=== PATIENT | male | born 1965 ===

== ENCOUNTER 2016-07-14 17:24 | Observation (INO) | payer OTHER ==
--- NOTE | 2016-07-14 18:00 | ED PDOC ---
HPI: Chest Pain Time Seen by Provider: 07/14/16 17:39 Chief Complaint (Nursing): Chest Pain Chief Complaint (Provider): Chest Pain History Per: Patient History/Exam Limitations: no limitations Onset/Duration Of Symptoms: Days (3 days), Intermittent Episodes Current Symptoms Are (Timing): Intermittent Episodes Severity: Moderate Quality: Sharp Associated Symptoms: Dyspnea, Other (chronic headache, difficulty sleeping). denies: Nausea Additional Complaint(s): Rolf Altamirano is a 51 year old male, with a past medical history of previously known migraines and hypercholesterolemia, who presents to the emergency department for the evaluation of intermittent episodes of sharp, left- sided chest pain, that the patient has been experiencing over the last 2 days, associated with SOB. Associated chronic headache and difficulty sleeping are currently present. Denies nausea or vomiting. PMD: Lee Sykes MD Past Medical History Reviewed: Historical Data, Nursing Documentation, Vital Signs Vital Signs: Last Vital Signs Temp 97.7 F 07/14/16 17:31 Pulse 85 07/14/16 19:01 Resp 16 07/14/16 18:03 BP 126/78 07/14/16 18:03 Pulse Ox 99 07/14/16 19:01 - Medical History PMH: Hypercholesterolemia, Migraine Denies: Chronic Kidney Disease - Surgical History Surgical History: No Surg Hx - Family History Family History: States: No Known Family Hx - Social History Current smoker - smoking cessation education provided: No Ex-Smoker (has not smoked in the last 12 months): No Alcohol: None Drugs: Denies - Immunization History Hx Influenza Vaccination: No Hx Pneumococcal Vaccination: No - Home Medications Home Medications: Ambulatory Orders Medication Instructions Recorded Promethazine/Codeine 5 ml PO Q8 #75 ml 01/19/16 [Codeine/Promethazine 10 MG/5 Ml-6.25 MG/5 Ml] predniSONE [Prednisone] 20 mg PO BID #10 tab 01/19/16 - Allergies Allergies/Adverse Reactions: Allergies Allergy/AdvReac Type Severity Reaction Status Date / Time No Known Allergies Allergy Verified 01/19/16 20:55 DALJIT Risk Score for UA/NSTEMI - DALJIT Risk Score Age > 64: NO 3 or more CAD Risk Factors: NO Known CAD (Stenosis greater than 50%): NO Aspirin use in past 7 days: NO Severe Angina: NO EKG ST changes greater than 0.5mm: NO Positive Cardiac Marker: NO DALJIT Score: 0 Risk %: 5% Review of Systems ROS Statement: Except As Marked, All Systems Reviewed And Found Negative Cardiovascular: Positive for: Chest Pain ("sharp", left-sided) Respiratory: Negative for: Shortness of Breath Gastrointestinal: Negative for: Nausea Neurological: Positive for: Headache (chronic, evaluated by Neurologist for same , MRI performed, no change in pain) Physical Exam - Reviewed Nursing Documentation Reviewed: Yes Vital Signs Reviewed: Yes - Physical Exam Appears: Positive for: Well, Non-toxic, No Acute Distress Head Exam: Positive for: ATRAUMATIC, NORMOCEPHALIC Skin: Positive for: Normal Color, Warm, Dry Cardiovascular/Chest: Positive for: Regular Rate, Rhythm, Chest Non Tender. Negative for: Murmur Respiratory: Positive for: Normal Breath Sounds. Negative for: Respiratory Distress Gastrointestinal/Abdominal: Positive for: Normal Exam, Soft. Negative for: Tenderness Back: Positive for: Normal Inspection. Negative for: L CVA Tenderness, R CVA Tenderness Neurologic/Psych: Positive for: Alert, Oriented - Laboratory Results Result Diagrams: 07/14/16 18:00 07/14/16 18:00 - ECG ECG Rhythm: Positive for: Sinus Rhythm, Right Bundle Branch Block (incomplete). Negative for: ST/T Changes Rate: 85 O2 Sat by Pulse Oximetry: 99 (RA) Pulse Ox Interpretation: Normal - Radiology X-Ray: Interpreted by In X-Ray Interpretation: No Acute Disease Medical Decision Making Medical Decision Makin:39 Initial Impression: Chest pain Initial Plan: * Chest X-Ray * Electrocardiogram * Complete Blood Count * Comprehensive Metabolic Panel * Prothrombin Time * Partial Thromboplastin Time * Troponin I * Reevaluation 17:55 EKG reviewed with no ST/T changes, incomplete Right Bundle Branch Block, and a Normal Sinus Rhythm at a rate of 85. Scribe Attestation: Documented by Owen Oakley, acting as a scribe for Amalia Rodriguez MD. Provider Scribe Attestation: All medical record entries made by the Scribe were at my direction and personally dictated by me. I have reviewed the chart and agree that the record accurately reflects my personal performance of the history, physical exam, medical decision making, and the department course for this patient. I have also personally directed, reviewed, and agree with the discharge instructions and disposition. Disposition - Clinical Impression Clinical Impression: Chest pain - Patient ED Disposition Is Patient to be Admitted: Yes - Disposition Disposition Time: 19:10 Condition: STABLE - Pt Status Changed To: Hospital Disposition Of: Observation - POA Present On Arrival: None
[2016-07-14 18:20] LABS: BASO # 0.1 K/uL (0.0-0.2); EOS # 0.9 K/uL (0.0-0.7); EOS % 9.8 % (0.0-4.0); HEMATOCRIT 41.9 % (35.0-51.0); LYMPH # 2.6 K/uL (1.0-4.3); LYMPH % 27.4 % (20.0-40.0); MEAN CELL VOLUME 83.4 fl (80.0-94.0); MEAN CORPUSCULAR HEMOGLOBIN 28.8 pg (27.0-31.0); MEAN CORPUSCULAR HGB CONC 34.6 g/dL (33.0-37.0); MEAN PLATELET VOLUME 10.1 fl (7.2-11.7); MONO % 11.1 % (0.0-10.0); NEUT # 4.8 K/uL (1.8-7.0); NEUT % 50.7 % (50.0-75.0); NRBC % 0.1 % (0.0-0.0); RED CELL DISTRIBUTION WIDTH 13.5 % (11.5-14.5); WHITE BLOOD COUNT 9.5 K/uL (4.8-10.8)
[2016-07-14 18:34] LABS: ALB/GLOB RATIO 1.6 (1.0-2.1); ALKALINE PHOSPHATASE 71 U/L (38-126); ALT/SGPT 58 U/L (21-72); AST/SGOT 31 U/L (17-59); BILIRUBIN,TOTAL 0.7 mg/dl (0.2-1.3); BLOOD UREA NITROGEN 23 mg/dl (9-20); CALCIUM 9.1 mg/dL (8.4-10.2); CARBON DIOXIDE 25 mmol/L (22-30); CHLORIDE 103 mmol/L (98-107); GFR AFRICAN-AMERICAN > 60; GLUCOSE,RANDOM 99 mg/dL (75-110); POTASSIUM 3.7 MMOL/L (3.6-5.0); SODIUM 138 mmol/l (132-148); TOTAL PROTEIN 7.6 G/DL (6.3-8.2)
[2016-07-14 18:40] LABS: PARTIAL THROMBOPLASTIN TIME 32.3 Seconds (25.6-37.1)
[2016-07-15 06:47] LABS: HEMATOCRIT 42.9 % (35.0-51.0); MEAN CELL VOLUME 83.4 fl (80.0-94.0); MEAN CORPUSCULAR HEMOGLOBIN 28.6 pg (27.0-31.0); MEAN CORPUSCULAR HGB CONC 34.3 g/dL (33.0-37.0); RED CELL DISTRIBUTION WIDTH 13.7 % (11.5-14.5); WHITE BLOOD COUNT 7.6 K/uL (4.8-10.8)
[2016-07-15 07:01] LABS: ALB/GLOB RATIO 1.6 (1.0-2.1); ALKALINE PHOSPHATASE 67 U/L (38-126); ALT/SGPT 58 U/L (21-72); AST/SGOT 28 U/L (17-59); BILIRUBIN,TOTAL 1.2 mg/dl (0.2-1.3); BLOOD UREA NITROGEN 18 mg/dl (9-20); CALCIUM 9.3 mg/dL (8.4-10.2); CARBON DIOXIDE 26 mmol/L (22-30); CHLORIDE 104 mmol/L (98-107); GFR AFRICAN-AMERICAN > 60; GLUCOSE,RANDOM 86 mg/dL (75-110); POTASSIUM 4.3 MMOL/L (3.6-5.0); SODIUM 141 mmol/l (132-148); TOTAL PROTEIN 7.4 G/DL (6.3-8.2)
[2016-07-15 07:08] LABS: T4 6.45 ug/dl (5.5-11.0)
[2016-07-15 07:22] LABS: THYROID STIMULATING HORMONE 3.88 mIU/ML (0.46-4.68)
[2016-07-15 07:54] VITALS: RESP 18
[2016-07-15] MEDS ORDERED: Gadodiamide 287 MG/ML VIAL (15ML) IV ONE (07:59)
[2016-07-15] MEDS ORDERED: Omega-3-Acid Ethyl Esters 1 GM Cap PO SCH (09:00)
[2016-07-15 09:03] LABS: CHOLESTEROL 183 mg/dL (0-199)
--- NOTE | 2016-07-15 09:24 | CP.PCM.CON ---
History of Present Illness - History of Present Illness History of Present Illness: Full Note Dictated Atypical chest pain H/O Lipid abnormality No evidence of ACS seen Pt may go home and be treated as out pt. Past Patient History - Infectious Disease Hx of Infectious Diseases: None - Past Medical History & Family History Past Medical History?: No - Past Social History Smoking Status: Never Smoked - CARDIAC Hx Cardiac Disorders: Yes Hx Hypercholesterolemia: Yes - PULMONARY Hx Respiratory Disorders: No - NEUROLOGICAL Hx Neurological Disorder: Yes Hx Migraine: Yes (on and off headache) - HEENT Hx HEENT Problems: No - RENAL Hx Chronic Kidney Disease: No - ENDOCRINE/METABOLIC Hx Endocrine Disorders: No - HEMATOLOGICAL/ONCOLOGICAL Hx Blood Disorders: No - INTEGUMENTARY Hx Dermatological Problems: No - MUSCULOSKELETAL/RHEUMATOLOGICAL Hx Musculoskeletal Disorders: No Hx Falls: No - GASTROINTESTINAL Hx Gastrointestinal Disorders: No - GENITOURINARY/GYNECOLOGICAL Hx Genitourinary Disorders: No - PSYCHIATRIC Hx Psychophysiologic Disorder: No Hx Substance Use: No - SURGICAL HISTORY Hx Surgeries: No - ANESTHESIA Hx Anesthesia: No Hx Anesthesia Reactions: No Hx Malignant Hyperthermia: No Has any member of the family had a problem w/ anesthesia?: No Meds Allergies/Adverse Reactions: Allergies Allergy/AdvReac Type Severity Reaction Status Date / Time No Known Allergies Allergy Verified 01/19/16 20:55 - Medications Medications: Current Medications Acetaminophen (Tylenol 325mg Tab) 650 mg PO Q4 PRN PRN Reason: Headache Aspirin (Aspirin Chewable) 81 mg PO DAILY [facility] Last Admin: 07/15/16 09:05 Dose: 81 mg Folic Acid (Folic Acid) 1 mg PO DAILY [facility] Last Admin: 07/15/16 09:05 Dose: 1 mg Home Med (Icosapent Ethyl [Vascepa]) 1 tab PO DAILY [facility] Results - Vital Signs Recent Vital Signs: Last Vital Signs Temp 97.7 F 07/15/16 07:54 Pulse 69 07/15/16 07:54 Resp 18 07/15/16 07:54 BP 116/68 07/15/16 07:54 Pulse Ox 98 07/15/16 07:54 - Labs Result Diagrams: 07/15/16 05:20 07/15/16 05:20 Labs: Laboratory Results - last 24 hr 07/15/16 07/15/16 05:20 05:20 WBC 7.6 RBC 5.15 Hgb 14.7 Hct 42.9 MCV 83.4 MCH 28.6 MCHC 34.3 RDW 13.7 Plt Count 161 Sodium 141 Potassium 4.3 Chloride 104 Carbon Dioxide 26 Anion Gap 15 BUN 18 Creatinine 0.8 Est GFR ( Amer) > 60 Est GFR (Non-Af Amer) > 60 Random Glucose 86 Calcium 9.3 Total Bilirubin 1.2 AST 28 ALT 58 Alkaline Phosphatase 67 Troponin I < 0.0120 Total Protein 7.4 Albumin 4.5 Globulin 2.9 Albumin/Globulin Ratio 1.6 Triglycerides 130 Cholesterol 183 LDL Cholesterol Direct 116 HDL Cholesterol 42 Thyroxine (T4) 6.45 Total T3 1.18 L TSH 3rd Generation 3.88
--- NOTE | 2016-07-15 09:52 | CON ---
DATE: 07/15/2016 He is hospitalized in room 417, bed [address] Geller's care. HISTORY OF PRESENT ILLNESS: This 51-year-old man who has been taking a medication for abnormal lissett sterol profile came into the hospital complaining of left pectoral discomfort, quite unconnected to a ny physical activity. The patient indicates that he is able to walk a couple of miles without any di fficulty and climb a couple of flights of stairs without any difficulty. He has never been a smoker, not a hypertensive or a diabetic, has no family history of vascular disease, has never been hospital ized and does not give any history of prior surgery. PHYSICAL EXAMINATION: GENERAL: Shows a young man, quite alert, awake, coherent, afebrile, comfortably sitting at the edge of his bed, eating his breakfast. VITAL SIGNS: Afebrile with a pulse rate of 68 beats per minute, regular and a blood pressure of 124/ 74 mmHg. His respiratory rate was 14 breaths per minute. EXTREMITIES: Warm. Nailbeds were pink. There was no central or peripheral cyanosis. There was no clubbing. HEART: The apex was not palpable. The first and second heart sounds were normal. There was no murm ur, no gallop. LUNGS: No rales. ABDOMEN: Soft. Liver and spleen were not palpable. There was no tenderness in the precordial area. LUNGS: Clear. No carotid bruits were audible. LABORATORY DATA: His electrocardiogram showed sinus rhythm with a normal EKG pattern. His troponin x 2 was negative for any evidence of myocyte injury. His hemoglobin and hematocrit were 14.7 g and 4 2.9%, respectively. His WBC count and platelet counts were within normal limits. His BUN and creati nine were 18 and 0.8 mg%. His electrolytes were normal. His LDL cholesterol was 116 and his HDL cho lesterol was 42. TSH level was normal. IMPRESSION: At this time is atypical chest pain with no evidence of acute coronary syndrome in a pat ient with a history of lipid abnormality, the precise nature of which is unknown. The patient may re turn home and be managed as an outpatient. At this juncture, there is no evidence of any myocardial ischemia or acute coronary syndrome. Curtis Lord MD cc: 23 TT: 07/15/2016 09:52:06 Confirmation # [id number] Dictation # [id number] tn
--- NOTE | 2016-07-15 11:07 | RAD ---
HISTORY: Chest pain. COMPARISON: No prior. TECHNIQUE: Chest PA and lateral FINDINGS: LUNGS: No active pulmonary disease. PLEURA: No significant pleural effusion identified. No pneumothorax apparent. CARDIOVASCULAR: Normal. OSSEOUS STRUCTURES: No significant abnormalities. VISUALIZED UPPER ABDOMEN: Normal. OTHER FINDINGS: None. IMPRESSION: No active disease.
[2016-07-15] MEDS ORDERED: Valproate 500 MG in Sodium Chloride 0.9% 100 ML IVPB ONE ×2 (12:41→14:00)
[2016-07-15] MEDS ORDERED: Dexamethasone 10 MG in Sodium Chloride 0.9% 50 ML IV ONE ×2 (12:41→14:00)
[2016-07-15] MEDS ORDERED: Magnesium Sulfate 2 gm/50 ml 2 GM/50 ML BAG IVPB ONE ×2 (12:41→14:00)
--- NOTE | 2016-07-15 12:41 | CP.PCM.CON ---
History of Present Illness - History of Present Illness History of Present Illness: Mr. Altamirano is a 51-year-old man with a past medical history of chronic headaches that have been ongoing for the last two years and are treated with indomethacin with partial relief. He describes the headache as bifrontal, radiating to the back of the head with a throbbing quality and it is severe enough (8/10) to prevent him from sleeping. He says that it is not alleviated or worsened by any particular activity or medication. He also complains of bilateral upper extremity jerking movements during sleep. He complained of left -sided chest pain for which he is being worked up. The headache has gotten worse since last Thursday and is ongoing daily at the same level. Review of Systems - Review of Systems All systems: reviewed and no additional remarkable complaints except Past Patient History - Infectious Disease Hx of Infectious Diseases: None - Past Medical History & Family History Past Medical History?: No - Past Social History Smoking Status: Never Smoked - CARDIAC Hx Cardiac Disorders: Yes Hx Hypercholesterolemia: Yes - PULMONARY Hx Respiratory Disorders: No - NEUROLOGICAL Hx Neurological Disorder: Yes Hx Migraine: Yes (on and off headache) - HEENT Hx HEENT Problems: No - RENAL Hx Chronic Kidney Disease: No - ENDOCRINE/METABOLIC Hx Endocrine Disorders: No - HEMATOLOGICAL/ONCOLOGICAL Hx Blood Disorders: No - INTEGUMENTARY Hx Dermatological Problems: No - MUSCULOSKELETAL/RHEUMATOLOGICAL Hx Musculoskeletal Disorders: No Hx Falls: No - GASTROINTESTINAL Hx Gastrointestinal Disorders: No - GENITOURINARY/GYNECOLOGICAL Hx Genitourinary Disorders: No - PSYCHIATRIC Hx Psychophysiologic Disorder: No Hx Substance Use: No - SURGICAL HISTORY Hx Surgeries: No - ANESTHESIA Hx Anesthesia: No Hx Anesthesia Reactions: No Hx Malignant Hyperthermia: No Has any member of the family had a problem w/ anesthesia?: No Meds Allergies/Adverse Reactions: Allergies Allergy/AdvReac Type Severity Reaction Status Date / Time No Known Allergies Allergy Verified 01/19/16 20:55 - Medications Medications: Current Medications Acetaminophen (Tylenol 325mg Tab) 650 mg PO Q4 PRN PRN Reason: Headache Aspirin (Aspirin Chewable) 81 mg PO DAILY [facility] Last Admin: 07/15/16 09:05 Dose: 81 mg Folic Acid (Folic Acid) 1 mg PO DAILY [facility] Last Admin: 07/15/16 09:05 Dose: 1 mg [id number] Ethyl Esters (Lovaza) 1 gm PO DAILY [facility] Last Admin: 07/15/16 09:48 Dose: 1 gm Physical Exam - Constitutional Appears: Well - Head Exam Head Exam: ATRAUMATIC, NORMAL INSPECTION, NORMOCEPHALIC - Eye Exam Eye Exam: EOMI, Normal appearance, PERRL - ENT Exam ENT Exam: Mucous Membranes Moist, Normal Exam - Neck Exam Neck exam: Positive for: Normal Inspection - Respiratory Exam Respiratory Exam: Clear to Auscultation Bilateral, NORMAL BREATHING PATTERN - Cardiovascular Exam Cardiovascular Exam: Bradycardia, +S1, +S2 - GI/Abdominal Exam GI & Abdominal Exam: Normal Bowel Sounds, Soft. absent: Tenderness - Rectal Exam Rectal Exam: Deferred - Extremities Exam Extremities exam: Positive for: normal inspection - Back Exam Back exam: NORMAL INSPECTION - Neurological Exam Neurological exam: Alert, CN II-XII Intact, Normal Gait, Oriented x3, Reflexes Normal - Expanded Neurological Exam Expanded Patient oriented to: person, place, time Cranial nerves: EOM's Intact: Normal, Facial Palsey w/Forehead Movement: Normal , Gag Reflex: Normal Cerebellar Function: Finger to Nose: Normal, Heel to Mgiuel: Normal, Romberg: Normal Upper motor neuron: Babinski Sign: Normal Sensory exam: Lower Extremity 2 Point Discrimination: Normal, Lower Extremity Light Touch: Normal, Lower Extremity Pin Prick: Normal, Lower Extremity Temperature: Normal, Upper Extremity 2 Point Discrimination: Normal, Upper Extremity Light Touch: Normal, Upper Extremity Pin Prick: Normal, Upper Extremity Temperature: Normal Neuro motor strength exam: Left Upper Extremity: 5, Right Upper Extremity: 5, Left Lower Extremity: 5, Right Lower Extremity: 5 DTR: Achilles Tendon Left: 2+, Achilles Tendon Right: 2+, Bicep Left: 2+, Bicep Right: 2+, Brachioradialis Left: 2+, Brachioradialis Right: 2+, Patellar Left: 2 +, Patellar Right: 2+, Tricep Left: 2+, Tricep Right: 2+ - Psychiatric Exam Psychiatric exam: Normal Affect, Normal Mood - Skin Skin Exam: Dry, Intact, Normal Color, Warm Results - Vital Signs Recent Vital Signs: Last Vital Signs Temp 98.1 F 07/15/16 12:05 Pulse 68 07/15/16 12:05 Resp 18 07/15/16 12:05 BP 116/65 07/15/16 12:05 Pulse Ox 98 07/15/16 12:05 - Labs Result Diagrams: 07/15/16 05:20 07/15/16 05:20 Labs: Laboratory Results - last 24 hr 07/15/16 07/15/16 07/15/16 05:20 05:20 11:23 WBC 7.6 RBC 5.15 Hgb 14.7 Hct 42.9 MCV 83.4 MCH 28.6 MCHC 34.3 RDW 13.7 Plt Count 161 Sodium 141 Potassium 4.3 Chloride 104 Carbon Dioxide 26 Anion Gap 15 BUN 18 Creatinine 0.8 Est GFR ( Amer) > 60 Est GFR (Non-Af Amer) > 60 Random Glucose 86 Calcium 9.3 Total Bilirubin 1.2 AST 28 ALT 58 Alkaline Phosphatase 67 Troponin I < 0.0120 < 0.0120 Total Protein 7.4 Albumin 4.5 Globulin 2.9 Albumin/Globulin Ratio 1.6 Triglycerides 130 Cholesterol 183 LDL Cholesterol Direct 116 HDL Cholesterol 42 Thyroxine (T4) 6.45 Total T3 1.18 L TSH 3rd Generation 3.88 - Imaging and Cardiology MRI - head Status: Image reviewed by me, Report reviewed by me (No infarcts or signicant findings on MRI brain.) Assessment & Plan (1) Headache, new daily persistent (NDPH) Assessment and Plan: There is a migraine and tension-type quality to the headache. The MRI of the brain is essentially normal despite motion artifact. Will treat the headache with Magnesium Sulfate 2 grams IV, Decadron 10 mg IV and Depakote 500 mg IV. Will increase indomethacin to 50 mg BID and recommend follow-up with outpatient neurology. Status: Acute Priority: High
--- NOTE | 2016-07-15 13:44 | MRI ---
PROCEDURE: MRI BRAIN WITH AND WITHOUT CONTRAST HISTORY: on and off headache,involuntary left arm movement COMPARISON: None. TECHNIQUE: Multiplanar, multisequence MR images of the brain were obtained with and without intravenous contrast enhancement. 15 cc of Omniscan. FINDINGS: HEMORRHAGE: None DWI: No evidence of an acute or early subacute infarction. BRAIN PARENCHYMA: No mass,mass effect or edema. No atrophy or chronic microvascular ischemic changes. ENHANCEMENT: No abnormal intracranial enhancement. VENTRICLES: Unremarkable. No hydrocephalus. CRANIUM: Unremarkable. ORBITS: Grossly unremarkable. PARANASAL SINUSES/MASTOIDS: Clear VASCULAR SYSTEM: Skull base flow voids intact. OTHER FINDINGS: None . IMPRESSION: Unremarkable pre and post contrast enhanced MRI of the brain.
--- NOTE | 2016-07-15 15:23 | CP.PCM.HP ---
History of Present Illness - History of Present Illness History of Present Illness: CC:Chest pain. 51 y/o M, walk in [facility], [place] to be evaluated for increased Chest pain , onset 2 days [employer] with no relief. Pt came c/o of L side Chest pain, intermittent episodes, tightness type, moderate pain, sharp, intensity 4:10, non radiated, associated to mild SOB. Pt denied any cardiac history. Worsening symptoms: Severe acute on chronic Headache, intermittent, intensity 8 :10, preventing Pt from sleeping. Pt denied: Fever, chills, n/v/d, abdominal pain, dizziness, LOC, palpitations, cough, back pain, urinary symptoms, sick contact, recent travel. PMHx: Headache, Migraine, High Cholesterol. CR showed: No active disease. Brain MRI: Unremarkable. Present on Admission - Present on Admission Any Indicators Present on Admission: No Review of Systems - Constitutional Constitutional: Headache - EENT Eyes: Other (negative) Ears: Other (negative) Nose/Mouth/Throat: Other (negative) - Cardiovascular Cardiovascular: Chest Pain (L side) - Respiratory Respiratory: Dyspnea - Gastrointestinal Gastrointestinal: Other (negative) - Genitourinary Genitourinary: Other (negative) - Musculoskeletal Musculoskeletal: Other (negative) - Integumentary Integumentary: Other (negative) - Neurological Neurological: Headaches - Psychiatric Psychiatric: Abnormal Sleep Pattern - Endocrine Endocrine: Other (negative) Past Patient History - Infectious Disease Hx of Infectious Diseases: None - Past Medical History & Family History Past Medical History?: No Pertinent Family History: Unknown - Past Social History Smoking Status: Never Smoked Alcohol: None Drugs: Denies Home Situation {Lives}: With Family - CARDIAC Hx Cardiac Disorders: Yes Hx Hypercholesterolemia: Yes - PULMONARY Hx Respiratory Disorders: No - NEUROLOGICAL Hx Neurological Disorder: Yes Hx Migraine: Yes (on and off headache) - HEENT Hx HEENT Problems: No - RENAL Hx Chronic Kidney Disease: No - ENDOCRINE/METABOLIC Hx Endocrine Disorders: No - HEMATOLOGICAL/ONCOLOGICAL Hx Blood Disorders: No - INTEGUMENTARY Hx Dermatological Problems: No - MUSCULOSKELETAL/RHEUMATOLOGICAL Hx Musculoskeletal Disorders: No Hx Falls: No - GASTROINTESTINAL Hx Gastrointestinal Disorders: No - GENITOURINARY/GYNECOLOGICAL Hx Genitourinary Disorders: No - PSYCHIATRIC Hx Psychophysiologic Disorder: No Hx Substance Use: No - SURGICAL HISTORY Hx Surgeries: No - ANESTHESIA Hx Anesthesia: No Hx Anesthesia Reactions: No Hx Malignant Hyperthermia: No Has any member of the family had a problem w/ anesthesia?: No Meds Home Medications: Home Medication List Medication Instructions Recorded Confirmed Type Indomethacin [Indocin] 2 tab PO BID #0 07/15/16 07/14/16 Rx Allergies/Adverse Reactions: Allergies Allergy/AdvReac Type Severity Reaction Status Date / Time No Known Allergies Allergy Verified 01/19/16 20:55 Physical Exam - Constitutional Appears: No Acute Distress - Head Exam Head Exam: NORMAL INSPECTION - Eye Exam Eye Exam: PERRL - ENT Exam ENT Exam: Normal Oropharynx - Neck Exam Neck exam: Positive for: Normal Inspection - Respiratory Exam Respiratory Exam: NORMAL BREATHING PATTERN - Cardiovascular Exam Cardiovascular Exam: REGULAR RHYTHM - Extremities Exam Extremities exam: Positive for: normal inspection - Back Exam Back exam: NORMAL INSPECTION - Neurological Exam Neurological exam: Alert, Oriented x3 Additional comments: No motor sensory deficit. - Psychiatric Exam Psychiatric exam: Normal Mood - Skin Skin Exam: Normal Color, Warm Results - Vital Signs Recent Vital Signs: Last Vital Signs Temp 98.1 F 07/15/16 12:05 Pulse 68 07/15/16 12:05 Resp 18 07/15/16 12:05 BP 116/65 07/15/16 12:05 Pulse Ox 98 07/15/16 12:05 reviewed J.P. - Labs Result Diagrams: 07/15/16 05:20 07/15/16 05:20 Labs: Laboratory Results - last 24 hr 07/15/16 07/15/16 07/15/16 05:20 05:20 11:23 WBC 7.6 RBC 5.15 Hgb 14.7 Hct 42.9 MCV 83.4 MCH 28.6 MCHC 34.3 RDW 13.7 Plt Count 161 Sodium 141 Potassium 4.3 Chloride 104 Carbon Dioxide 26 Anion Gap 15 BUN 18 Creatinine 0.8 Est GFR ( Amer) > 60 Est GFR (Non-Af Amer) > 60 Random Glucose 86 Calcium 9.3 Total Bilirubin 1.2 AST 28 ALT 58 Alkaline Phosphatase 67 Troponin I < 0.0120 < 0.0120 Total Protein 7.4 Albumin 4.5 Globulin 2.9 Albumin/Globulin Ratio 1.6 Triglycerides 130 Cholesterol 183 LDL Cholesterol Direct 116 HDL Cholesterol 42 Thyroxine (T4) 6.45 Total T3 1.18 L TSH 3rd Generation 3.88 reviewed J.P. - EKG Data EKG comments: reviewed J.P. - Imaging and Cardiology Chest x-ray Status: Report reviewed by me (Sarah) MRI - head Status: Report reviewed by me (Sarah) Assessment & Plan (1) Chest pain, atypical Status: Acute Priority: High (2) Headache, new daily persistent (NDPH) Status: Acute Priority: High (3) Hypercholesterolemia Status: Chronic Priority: Medium - Assessment and Plan (Free Text) Plan: Continue Tylenol, Aspirin, Indocin, Lovaza, Cardiology and Neuro consult appreciated. - Date & Time Date: 07/15/16 Time: 13:00
--- NOTE | 2016-07-15 16:46 | CARD ---
APPROVED REPORT EKG Measurement Heart [id number] <Conclusion> Normal sinus rhythm Possible Left atrial enlargement Incomplete right bundle branch block Borderline ECG
[2016-07-15 20:06] VITALS: BP 123/74; PULSE 80; TEMP 98; O2SAT 97
--- NOTE | 2016-07-16 11:25 | CARD ---
APPROVED REPORT EXAM: Two-dimensional and M-mode echocardiogram with Doppler and color Doppler. Other Information Quality : FairRhythm : INDICATION Chest Pain 2D DIMENSIONS IVSd0.91 (0.7-1.1cm)LVDd4.02 (3.9-5.9cm) LVOT Diameter2.20 (1.8-2.4cm)PWd0.86 (0.7-1.1cm) IVSs1.45 (0.8-1.2cm)LVDs1.99 (2.5-4.0cm) FS (%) 50.5 %PWs1.37 (0.8-1.2cm) M-Mode DIMENSIONS Left Atrium (MM)3.65 (2.5-4.0cm)Aortic Root2.73 (2.2-3.7cm) Aortic Cusp Exc.2.03 (1.5-2.0cm) Aortic Valve AoV Peak Cbxekpvm422.1cm/sAoV VTI21.5cmAO Peak GR.6mmHg LVOT Peak Tiwlubtb799.8cm/sLVOT VTI21.79cmAO Mean GR.4mmHg YUMIKO (VMAX)1.18ej7OAW (VTI)1.97cm2 Mitral Valve MV E Rbovpquu45.7cm/sMV DECEL ONWY056gyRW A Usecbicf52.2cm/s MV RWD47yoX/A ratio1.0MVA (PHT)2.79cm2 TDI Lateral E' Peak V16.30cm/sMedial E' Peak V9.78cm/sE/Lateral E'3.2 E/Medial E'5.4 Pulmonary Valve PV Peak Qdvqazcg386.6cm/s Tricuspid Valve TR Peak Kjwdfnxw857xt/sRAP LNBKLOKB36bcHwTS Peak Gr.4mmHg ONRY68raBy LEFT VENTRICLE The left ventricle is normal size. There is normal left ventricular wall thickness. The left ventricular function is normal. The left ventricular ejection fraction is within the normal range. The Ejection Fraction is 65-70%. There is normal LV segmental wall motion. The left ventricular diastolic function is normal. No left ventricle thrombus noted on this study. There is no mass noted in the left ventricle. RIGHT VENTRICLE The right ventricle is normal size. There is normal right ventricular wall thickness. The right ventricular systolic function is normal. ATRIA The left atrium size is normal. The right atrium size is normal. The interatrial septum is intact with no evidence for an atrial septal defect. AORTIC VALVE The aortic valve is normal in structure and function. No aortic regurgitation is present. There is no aortic valvular stenosis. There is no aortic valvular vegetation. MITRAL VALVE The mitral valve is normal in structure and function. There is no evidence of mitral valve prolapse. There is no mitral valve stenosis. There is no mitral valve regurgitation noted. TRICUSPID VALVE The tricuspid valve is normal in structure and function. There is no tricuspid valve regurgitation noted. There is no tricuspid valve prolapse or vegetation. There is no tricuspid valve stenosis. PULMONIC VALVE The pulmonary valve is normal in structure and function. There is no pulmonic valvular regurgitation. There is no pulmonic valvular stenosis. GREAT VESSELS The aortic root is normal in size. The IVC is normal in size and collapses >50% with inspiration. PERICARDIAL EFFUSION The pericardium appears normal. There is no pleural effusion. <Conclusion> The left ventricle is normal size. The left ventricular function is normal. The left ventricular ejection fraction is within the normal range. The Ejection Fraction is 65-70%.
== END 2016-07-15 21:15 | disposition home or self-care (01) ==
LOC: H.ER 17:24 → H.EROBSV 19:09 → H.ERHOLD 20:51 → H.TEL 21:27
PROVIDERS: ADMIT Internal Medicine Pulmonary Disease; ATTEND Internal Medicine Pulmonary Disease
DX: R07.89 Other chest pain (principal); G43.909 Migraine, unspecified, not intractable, without status migrainosus; G44.52 New daily persistent headache (NDPH); E78.00 Pure hypercholesterolemia, unspecified; Z79.899 Other long term (current) drug therapy

== ENCOUNTER 2016-08-06 19:26 | Emergency (ER) | payer OTHER ==
[2016-08-06 19:42] VITALS: RESP 18; TEMP 98.4
[2016-08-06] MEDS ORDERED: Magnesium Sulfate 2 gm/50 ml 2 GM/50 ML BAG IV STA (20:17)
[2016-08-06] MEDS ORDERED: Dexamethasone 10 MG in Sodium Chloride 0.9% 50 ML IV STA (20:17)
[2016-08-06] MEDS ORDERED: levETIRAcetam 500 MG in Sodium Chloride 0.9% 100 ML IVPB ONE (20:17)
[2016-08-06] MEDS ORDERED: Sodium Chloride 0.9% 1,000 ML IV STA (20:17)
[2016-08-06] MEDS ORDERED: Magnesium Sulfate 2 gm/50 ml 2 GM/50 ML BAG ONE (20:31)
--- NOTE | 2016-08-06 20:43 | ED PDOC ---
HPI: Headache Time Seen by Provider: 08/06/16 19:52 Chief Complaint (Nursing): Headache Chief Complaint (Provider): Headache/ Facial Pain History Per: Patient History/Exam Limitations: no limitations Onset/Duration Of Symptoms: Days (2) Current Symptoms Are (Timing): Still Present Additional Complaint(s): Rolf Altamirano is a 51 y/o male, with a recent diagnosis of migraines and tension headaches, presenting to the ER on 08/06/2016 with complaints of headaches and facial pain for two days. He rates the Headache as a 6/10. Patient was recently admitted for chest pain about three weeks ago, in which he was given a workup for his chest pain as well as a neurological workup with Dr. Hernandez. Patient continues to follow up with Dr. Hurley at outpatient. He states he has not been taking his Indocin routinely as he was advised to. Past Medical History Reviewed: Historical Data, Nursing Documentation, Vital Signs Vital Signs: Last Vital Signs Temp 98.4 F 08/06/16 19:37 Pulse 76 08/06/16 19:37 Resp 18 08/06/16 19:37 BP 155/92 H 08/06/16 19:37 Pulse Ox 98 08/06/16 19:37 - Medical History PMH: Hypercholesterolemia, Migraine (on and off headache) Denies: Chronic Kidney Disease Other PMH: hypertriglyceridemia - Surgical History Surgical History: No Surg Hx - Family History Family History: States: Unknown Family Hx - Social History Current smoker - smoking cessation education provided: No Alcohol: None Drugs: Denies - Immunization History Hx Influenza Vaccination: No Hx Pneumococcal Vaccination: No - Home Medications Home Medications: Ambulatory Orders Medication Instructions Recorded Aspirin [Aspirin Chewable] 1 tab PO DAILY 07/14/16 Fenofibrate [Tricor] 1 tab PO DAILY 07/14/16 Folic Acid 1 tab PO DAILY 07/14/16 Icosapent Ethyl [Vascepa] 1 tab PO DAILY 07/14/16 Acetaminophen [Tylenol 325mg tab] 650 mg PO Q4 PRN #100 tab 07/15/16 Indomethacin [Indocin] 2 tab PO BID #0 07/15/16 Vjrow-4-Oqxr Ethyl Esters 1 GM 1 gm PO DAILY sgl 07/15/16 [Lovaza] - Allergies Allergies/Adverse Reactions: Allergies Allergy/AdvReac Type Severity Reaction Status Date / Time No Known Allergies Allergy Verified 01/19/16 20:55 Review of Systems ROS Statement: Except As Marked, All Systems Reviewed And Found Negative Musculoskeletal: Positive for: Other ((+) facial pain ) Neurological: Positive for: Headache. Negative for: Weakness, Numbness Physical Exam - Reviewed Nursing Documentation Reviewed: Yes Vital Signs Reviewed: Yes - Physical Exam Appears: Positive for: Non-toxic, No Acute Distress Head Exam: Positive for: ATRAUMATIC, NORMOCEPHALIC Skin: Positive for: Normal Color. Negative for: Rash Eye Exam: Positive for: Normal appearance, EOMI, PERRL ENT: Positive for: Normal ENT Inspection. Negative for: Pharyngeal Erythema, Tonsillar Exudate, Tonsillar Swelling Neck: Positive for: Normal, Painless ROM, Supple Cardiovascular/Chest: Positive for: Regular Rate, Rhythm. Negative for: Murmur Respiratory: Positive for: Normal Breath Sounds. Negative for: Wheezing, Respiratory Distress Gastrointestinal/Abdominal: Positive for: Normal Exam, Soft. Negative for: Tenderness Extremity: Positive for: Normal ROM. Negative for: Deformity, Swelling Neurologic/Psych: Positive for: Alert, Oriented. Negative for: Motor/Sensory Deficits - Laboratory Results Result Diagrams: 08/06/16 20:40 08/06/16 20:40 - ECG O2 Sat by Pulse Oximetry: 98 Medical Decision Making Medical Decision Makin:52 Initial Impression- 51 y/o male with headaches and facial pain in setting of recent workup Initial Plan- * EKG * CMP * Magnesium * CBC w/ differential * Decadron Inj * Keppra IVPB * Magnesium Sulfate IV * Sodium Chloride 1,000 ml Reviewed brain MRI and echocardiogram, which were both normal. In neurological consults, Decadron magnesium and Depakote for migraine so will order that here. Keppra will be used in substitute for Depakote. 22:08 Labs reviewed, shows no clinically significant abnormalities. Upon re-evaluation , pt reports improvement in symptoms. Pt will adhere to scheduled follow-up with Dr. Hurley. Provider reinforced pt to comply with Indocin. Condition is stable for discharge. Clinical Impression- Tension headaches, Migraine headaches. Documented by Britta Wang, acting as a scribe for Rome García MD. All medical record entries made by the Scribe were at my direction and personally dictated by me. I have reviewed the chart and agree that the record accurately reflects my personal performance of the history, physical exam, medical decision making, and the department course for this patient. I have also personally directed, reviewed, and agree with the discharge instructions and disposition. Disposition - Clinical Impression Clinical Impression: Migraine - Disposition Referrals: Brendon Hurley MD [Medical Doctor] - Disposition Time: 21:30 Condition: STABLE Additional Instructions: Please continue with your Indomethacin as prescribed Instructions: Tension Headache (ED) Print Language: IRISH
[2016-08-06 21:03] LABS: BASO # 0.1 K/uL (0.0-0.2); BASO % 1.1 % (0.0-2.0); EOS # 0.8 K/uL (0.0-0.7); EOS % 9.6 % (0.0-4.0); HEMOGLOBIN 14.1 g/dL (12.0-18.0); LYMPH # 2.3 K/uL (1.0-4.3); LYMPH % 26.4 % (20.0-40.0); MEAN CELL VOLUME 83.2 fl (80.0-94.0); MEAN CORPUSCULAR HEMOGLOBIN 29.3 pg (27.0-31.0); MEAN CORPUSCULAR HGB CONC 35.3 g/dL (33.0-37.0); MEAN PLATELET VOLUME 9.7 fl (7.2-11.7); MONO # 0.8 K/uL (0.0-0.8); MONO % 8.8 % (0.0-10.0); NEUT # 4.7 K/uL (1.8-7.0); NEUT % 54.1 % (50.0-75.0); RBC 4.82 Mil/uL (4.40-5.90); WHITE BLOOD COUNT 8.6 K/uL (4.8-10.8)
[2016-08-06 21:11] LABS: ALB/GLOB RATIO 1.6 (1.0-2.1); ALT/SGPT 69 U/L (21-72); AST/SGOT 32 U/L (17-59); BLOOD UREA NITROGEN 18 mg/dl (9-20); CALCIUM 9.6 mg/dL (8.4-10.2); GFR AFRICAN-AMERICAN > 60; GFR NON-AFRICAN AMERICAN > 60; MAGNESIUM 2.4 MG/DL (1.6-2.3)
[2016-08-06 23:01] VITALS: BP 117/65; PULSE 73; O2SAT 99
--- NOTE | 2016-08-07 11:30 | CARD ---
APPROVED REPORT EKG Measurement Heart [id number] <Conclusion> Normal sinus rhythm Normal ECG
== END 2016-08-06 23:02 | disposition home or self-care (01) ==
LOC: H.ER 19:26
DX: G43.909 Migraine, unspecified, not intractable, without status migrainosus (principal); E78.00 Pure hypercholesterolemia, unspecified; E78.1 Pure hyperglyceridemia; Z79.82 Long term (current) use of aspirin

== ENCOUNTER 2018-02-27 11:47 | Emergency (ER) | payer OTHER ==
[2018-02-27 11:52] VITALS: BP 154/75; PULSE 99; RESP 18; TEMP 98.6; O2SAT 97
--- NOTE | 2018-02-27 12:15 | ED PDOC ---
HPI: Influenza Time Seen by Provider: 02/27/18 12:15 Chief Complaint: Cough, Cold, Congestion Chief Complaint (Provider): Cough, Cold, Congestion History Per: Patient Exam Limitations: language barrier (patient history obtained using [place]#[id number]) Onset/Duration Of Symptoms: Days Additional complaint(s):: Patient is a 52 y/o male with a PMHx of hypercholesterolemia and migraines who presents to the ED for evaluation of a cough, productive of phlegm, associated with headaches and back pain ongoing for the past two to three weeks. Patient states the symptoms started after having an ear infection which he states was treated by taking Augmentin. Patient admits to chills and chest congestion. Patient denies ear pain or fever. PCP: None Provided Past Medical History Reviewed: Historical Data, Nursing Documentation, Vital Signs Vital Signs: Last Vital Signs Temp 98.6 F 02/27/18 11:50 Pulse 99 H 02/27/18 11:50 Resp 18 02/27/18 11:50 BP 154/75 H 02/27/18 11:50 Pulse Ox 97 02/27/18 11:50 - Medical History PMH: Hypercholesterolemia, Migraine (on and off headache) Denies: Chronic Kidney Disease - Surgical History Surgical History: No Surg Hx - Family History Family History: States: Unknown Family Hx - Immunization History Hx Influenza Vaccination: No Hx Pneumococcal Vaccination: No - Home Medications Home Medications: Ambulatory Orders Medication Instructions Recorded Aspirin [Aspirin Chewable] 1 tab PO DAILY 07/14/16 Fenofibrate [Tricor] 1 tab PO DAILY 07/14/16 Folic Acid 1 tab PO DAILY 07/14/16 Icosapent Ethyl [Vascepa] 1 tab PO DAILY 07/14/16 Acetaminophen [Tylenol 325mg tab] 650 mg PO Q4 PRN #100 tab 07/15/16 Indomethacin [Indocin] 2 tab PO BID #0 07/15/16 Uxhky-4-Zqag Ethyl Esters 1 GM 1 gm PO DAILY sgl 07/15/16 [Lovaza] Oseltamivir Phosphate [Tamiflu] 75 mg PO BID #10 capsule 02/27/18 - Allergies Allergies/Adverse Reactions: Allergies Allergy/AdvReac Type Severity Reaction Status Date / Time No Known Allergies Allergy Verified 02/27/18 13:33 Review of Systems ROS Statement: Except As Marked, All Systems Reviewed And Found Negative Constitutional: Positive for: Chills. Negative for: Fever ENT: Negative for: Ear Pain Cardiovascular: Positive for: Chest Pain (congestion) Respiratory: Positive for: Cough (productive of phlegm) Musculoskeletal: Positive for: Back Pain Neurological: Positive for: Headache Physical Exam - Reviewed Nursing Documentation Reviewed: Yes Vital Signs Reviewed: Yes - Physical Exam Appears: Positive for: No Acute Distress Head Exam: Positive for: ATRAUMATIC, NORMAL INSPECTION, NORMOCEPHALIC Skin: Positive for: Normal Color, Warm, DRY Eye Exam: Positive for: EOMI, Normal appearance, PERRL ENT: Positive for: Normal ENT Inspection, TM Is/Are (clear). Negative for: Pharyngeal Erythema, Tonsillar Exudate, Tonsillar Swelling, Other (drainage) Neck: Positive for: Normal, Painless ROM Cardiovascular/Chest: Positive for: Regular Rate, Rhythm. Negative for: Murmur Respiratory: Positive for: Normal Breath Sounds (clear auscultation bilaterally). Negative for: Respiratory Distress Gastrointestinal/Abdominal: Positive for: Normal Exam Back: Positive for: Normal Inspection. Negative for: L CVA Tenderness, R CVA Tenderness, Vertebral Tenderness Extremity: Positive for: Normal ROM (Upper/Lower). Negative for: Pedal Edema, Deformity Neurologic/Psych: Positive for: Alert, Oriented. Negative for: Motor/Sensory Deficits Medical Decision Making Medical Decision Making: Time: 1222 Impression: viral infection or flu Plan:r/o PNA and bacterial infx CMP CBC Chest Two Views (PA/Lat) [Rad] Influenza A B Time: 1225 IMPRESSION: Chest X-Ray (Dr. Bismark Boyer) No active disease. Scribe Attestation: Documented by Rachid Hudson, acting as a scribe for FABRICE Blanco. Provider Scribe Attestation: All medical record entries made by the Scribe were at my direction and per sonally dictated by me. I have reviewed the chart and agree that the record accurately reflects my personal performance of the history, physical exam, medical decision making, and the department course for this patient. I have also personally directed, reviewed, and agree with the discharge instructions and disposition. - Laboratory Results Result Diagrams: 02/27/18 13:00 - ECG O2 Sat by Pulse Oximetry: 97 (RA) Pulse Ox Interpretation: Normal Disposition - Clinical Impression Clinical Impression: Influenza A Doctor Will See Patient In The: Office Counseled Patient/Family Regarding: Diagnosis, Need For Followup, Rx Given - Disposition Disposition: Routine/Home Disposition Time: 13:47 Condition: STABLE Prescriptions: Oseltamivir Phosphate [Tamiflu] 75 mg PO BID #10 capsule Instructions: Flu, Adult (DC) Forms: [employer] (Italian), [employer] (Scottish)
--- NOTE | 2018-02-27 12:54 | RAD ---
Date of service: 02/27/2018 HISTORY: r/o pna COMPARISON: Chest radiograph dated 07/14/2016. TECHNIQUE: Chest PA and lateral FINDINGS: LUNGS: No active pulmonary disease. PLEURA: No significant pleural effusion identified. No pneumothorax apparent. CARDIOVASCULAR: No aortic atherosclerotic calcification present. Normal cardiac size. No pulmonary vascular congestion. OSSEOUS STRUCTURES: No significant abnormalities. VISUALIZED UPPER ABDOMEN: Normal. OTHER FINDINGS: None. IMPRESSION: No active disease.
[2018-02-27 13:24] LABS: ALB/GLOB RATIO 1.3 (1.0-2.1); ALBUMIN 4.6 g/dL (3.5-5.0); ALT/SGPT 81 U/L (21-72); AST/SGOT 51 U/L (17-59); BLOOD UREA NITROGEN 17 mg/dl (9-20); CALCIUM 9.4 mg/dL (8.4-10.2); GFR NON-AFRICAN AMERICAN > 60
[2018-02-27 13:33] LABS: BASO # 0.1 K/uL (0.0-0.2); BASO % 1.2 % (0.0-2.0); EOS # 0.4 K/uL (0.0-0.7); EOS % 7.3 % (0.0-4.0); HEMOGLOBIN 14.2 g/dL (12.0-18.0); LYMPH # 1.1 K/uL (1.0-4.3); LYMPH % 21.5 % (20.0-40.0); MEAN CELL VOLUME 85.8 fl (80.0-94.0); MEAN CORPUSCULAR HEMOGLOBIN 28.9 pg (27.0-31.0); MEAN CORPUSCULAR HGB CONC 33.7 g/dL (33.0-37.0); MEAN PLATELET VOLUME 10.4 fl (7.2-11.7); MONO # 1.1 K/uL (0.0-0.8); MONO % 22.4 % (0.0-10.0); NEUT # 2.3 K/uL (1.8-7.0); NEUT % 47.6 % (50.0-75.0); NRBC % 0.2 % (0.0-0.0); PLATELET COUNT 159 K/uL (130-400); RED CELL DISTRIBUTION WIDTH 13.6 % (11.5-14.5); WHITE BLOOD COUNT 4.9 K/uL (4.8-10.8)
[2018-02-27 16:13] LABS: BANDS 2 % (0-2); BASOPHIL 1 % (0-2); EOSINOPHIL 9 % (0-7); LYMPHOCYTE 14 % (20-50); MONOCYTE 19 % (0-10); MYELOCYTE 1 % (0-0); NEUTROPHIL 49 % (42-75); PLATELET ESTIMATE NORMAL (NORMAL); REACTIVE LYMPHOCYTES 5 % (0-0); TOTAL CELLS COUNTED 100
== END 2018-02-27 14:18 | disposition home or self-care (01) ==
LOC: H.ER 11:47
DX: J09.X2 Influenza due to identified novel influenza A virus with other respiratory manifestations (principal); E78.00 Pure hypercholesterolemia, unspecified